=== PATIENT | female | born 1935 | race Hispanic/Latino ===

== ENCOUNTER 2018-06-07 14:45 | Day surgery (SDC) | payer OTHER, MEDICARE ==
[2018-06-03 23:05] VITALS: BMI 34.7
[2018-06-07] MEDS ORDERED: Iodixanol 320 MG/ML 100 ML BOTTLE IV ONE (17:30)
[2018-06-07] MEDS ORDERED: Iodixanol 320 MG/ML 200 ML BOTTLE IV ONE (17:30)
[2018-06-07] MEDS ORDERED: Iohexol 350mgl/ml 50 ML ONE (17:30)
[2018-06-07] MEDS ORDERED: Phenylephrine 10 mg/ml Inj ONE (17:30)
[2018-06-07] MEDS ORDERED: Nitroglycerin 50mg in D5W 50 MG/250 ML BOTTLE IV ONE (17:30)
[2018-06-07] MEDS ORDERED: Verapamil 2 ML ONE (17:31)
[2018-06-07] MEDS ORDERED: Lidocaine 2% Inj (20ml) ONE (17:31)
[2018-06-07] MEDS ORDERED: Midazolam 2 MG/2 ML VIAL ONE ×2 (18:06→18:35)
[2018-06-07] MEDS ORDERED: Bacitracin 500 Units/gm Oint Foilpak UD TOP ONE (19:08)
[2018-06-07 19:13] VITALS: BP 183/66; PULSE 64
--- NOTE | 2018-06-08 04:18 | PROCN ---
DATE: 06/07/2018 INDICATIONS: Ms. aHnny Smith is an 82-year-old female with history of hypertension, diabetes, hyperlipidemia presented to [facility] with non-ST elevation TX. The patient was initially evaluated by Dr. Hoffman and initially plan was to undergo cardiac catheterization over the weekend, but the patient refused, I was called for evaluation of cardiac catheterization to discuss the pros and cons with the patient. After reviewing the techniques and methods of the procedure, she agreed to proceed to undergo cardiac catheterization for evaluation of non-ST elevation TX. PROCEDURE PERFORMED: Left heart catheterization with selective left and right coronary angiogram via left radial arterial approach. A 6-[place]oz[place] left radial arterial access, wrist band for hemostasis. PTCA stenting of mid left circumflex coronary artery deployment of 2.5 x 38 mm Resolute Frankie drug-eluting stent, degeneration from 80% down to 0% BOBBY-3 flow. ANGIOGRAPHIC FINDINGS: Left main, large-sized vessel bifurcates into left anterior descending and left circumflex coronary artery. Left main is free of any significant disease. Left anterior descending artery has mid nonobstructive 40% stenosis gives off 2 medium-sized diagonal branches. Left circumflex runs in the AV groove, has a mid high-grade calcific 80% stenosis gives off 2 small size obtuse marginal branch. RCA ostial calcific 80% stenosis. RCA gives off PDA and PLV branches free of any obstructive disease. Left ventricular ejection fraction is 50% to 55%. Left ventricular end-diastolic pressure was 18 mmHg. TECHNIQUES OF INTERVENTION: XB 3.0 guiding catheter was used to engage the left coronary system. Prowater wire was used to negotiate through the 80% stenosis. The lesion was predilated with 2.5 balloon and subsequently stented with 2.5 x 38 mm Resolute Frankie drug-eluting stent. Final angiogram done showed degeneration down to 0% BOBBY-3 flow. IMPRESSION: Successful revascularization of a high-grade stenosis involving the left circumflex coronary artery, deployment of one drug-eluting stent, normal left ventricular ejection fraction, high-grade calcific right coronary artery stenosis to be considered for intervention in the future if the patient has symptoms. Continue the patient with dual antiplatelet therapy, guideline-directed therapy for coronary artery disease. Farzad Werner MD cc: Ray Vidales MD and David Hoffman MD
--- NOTE | 2018-06-08 12:28 | CARD ---
APPROVED REPORT Date of service: 06/07/2018 EKG Measurement Heart [id number] <Conclusion> Normal sinus rhythm Possible Left atrial enlargement Left axis deviation Possible Old Anteroseptal infarct?
== END 2018-06-08 00:15 | disposition short-term general hospital (02) ==
LOC: CATH 14:45 → CCU 19:09 → CATH 06-08 00:15
PROVIDERS: ATTEND Internal Medicine Interventional Cardiology
DX: I21.4 Non-ST elevation (NSTEMI) myocardial infarction (principal); I25.10 Atherosclerotic heart disease of native coronary artery without angina pectoris; E11.9 Type 2 diabetes mellitus without complications; E78.5 Hyperlipidemia, unspecified; I10 Essential (primary) hypertension
CPT/HCPCS: 82948; 85175; 93005; 93458; 99152; 99153; C1725; C1769 ×3; C1874; C1887; C1894; C9600; J1644 ×2; J2250; J3010; Q9966; Q9967